=== PATIENT | female | born 2000 | race Caucasian/White ===

== ENCOUNTER 2021-12-22 21:31 | Emergency (ER) | payer OTHER ==
[~2021-12-22] VITALS: Ht 160 cm; Wt 50.0 kg
[2021-12-22 21:37] VITALS: BP 133/88
== END 2021-12-22 23:28 ==
LOC: ER 21:33
DX: Z02.89 Encounter for other administrative examinations (principal); R51.9 Headache, unspecified
CPT/HCPCS: 99283